=== PATIENT | female | born 1945 | race Caucasian/White ===

== ENCOUNTER 2023-07-16 09:02 | Inpatient (IN) | payer MEDICARE ==
[2023-07-16] MEDS ORDERED: Ondansetron PF 4 MG/2 ML Vial ONE ×2 (10:25→20:00)
[2023-07-16] MEDS ORDERED: Acetaminophen 500 MG TAB ONE (10:25)
[2023-07-16 11:00] LABS: #Basophils 0.1 10x3/uL (0.0-0.2); #Monocytes 1.1 10x3/uL (0.0-1.1); #Neutrophils 7.5 10x3/uL (1.5-8.4); %Basophils 0.6 % (0.0-2.0); %Eosinophils 0.3 % (0.0-6.0); %Lymphocytes 11.1 % (18.0-47.0); %Monocytes 10.9 % (0.0-10.0); %Neutrophils 75.5 % (40.0-75.0); Hematocrit 36.3 % (34.9-44.5); Hemoglobin 12.7 g/dL (12.0-15.5); Mean Corpuscular Hemoglobin 30.5 pg (27.0-33.0); Mean Corpuscular Volume 87.1 fl (81.6-98.3); Mean Platelet Volume 10.3 fl (7.4-10.4); Platelet Count 259 10x3/uL (150-450); RBC Distribution Width 13.2 % (11.5-14.5); Red Blood Cell (RBC) Count 4.17 10x6/uL (3.90-5.03); White Blood Cell (WBC) Count 9.9 10x3/uL (3.5-10.5)
[2023-07-16 11:15] LABS: ALT (SGPT) 22 U/L (8-55); AST (SGOT) 29 U/L (5-34); Albumin 3.4 g/dL (3.4-4.8); Alkaline Phosphatase 64 U/L (40-110); Anion Gap 16 mmol/L (10-20); BUN (Urea Nitrogen) 8 mg/dL (9.8-20.1); Bilirubin, Total 0.5 mg/dL (0.2-1.2); Calc. Creatinine Clearance 0 mL/min (70-130); Calcium 8.5 mg/dL (7.8-10.44); Carbon Dioxide 31 mmol/L (23-31); Chloride 92 mmol/L (98-107); Estimated GFR 76; Globulin 3.3 g/dL (2.4-3.5); Glucose 137 mg/dL (83-110); Magnesium 1.7 mg/dL (1.6-2.6); Protein, Total 6.7 g/dL (5.8-8.1); Sodium 136 mmol/L (136-145)
[2023-07-16 11:18] LABS: Potassium 2.5 mmol/L (3.5-5.1)
[2023-07-16] MEDS ORDERED: Potassium Bicarbonate/Cit Ac 20 MEQ TAB ONE (11:27)
[2023-07-16 11:34] LABS: SARS-CoV-2 NAA Rapid Test Not Detected (NotDetected)
[2023-07-16] MEDS ORDERED: Magnesium 2 GM/50 ML BAG (IN WATER) ONE (12:11)
[2023-07-16] MEDS ORDERED: NS 0.9% w/ 40 MEQ KCL 1,000 ML IV ONE ×2 (12:25→18:51)
[2023-07-16 12:46] LABS: Troponin I 0.017 ng/mL (< 0.028)
[2023-07-16] MEDS ORDERED: guaiFENesin/Codeine Phosphate 100 mg/10 mg 5 ml UD Cup ONE (13:29)
[2023-07-16] MEDS ORDERED: Senokot S 8.6-50 MG TAB PO PRN (14:09)
[2023-07-16] MEDS ORDERED: Ondansetron ODT 4 MG TAB PO PRN (14:09)
[2023-07-16] MEDS ORDERED: Ondansetron PF 4 MG/2 ML Vial IVP PRN (14:09)
[2023-07-16] MEDS ORDERED: Calcium Carbonate 500 MG ChewTAB PO PRN (14:09)
[2023-07-16] MEDS ORDERED: Loperamide HCl 2 MG CAP PO PRN (14:12)
[2023-07-16] MEDS ORDERED: hydrALAZINE 25 MG TAB PO PRN (14:13)
[2023-07-16] MEDS ORDERED: NS 0.9% w/ 40 MEQ KCL 1,000 ML IV SCH ×2 (14:15→20:30)
[2023-07-16] MEDS ORDERED: Insulin Regular 300 UNITS/3 ML VIAL SC PRN ×2 (14:15)
[2023-07-16] MEDS ORDERED: Oseltamivir 75 MG CAP PO SCH (14:15)
[2023-07-16] MEDS ORDERED: Dextrose 50% Abboject 50 ML SYRINGE SLOW IVP PRN (14:15)
[2023-07-16] MEDS ORDERED: Dextrose 5% in Water 1,000 ML IV PRN (14:15)
[2023-07-16] MEDS ORDERED: Glucagon 1 MG/ML KIT IM PRN (14:15)
[2023-07-16] MEDS ORDERED: Ventolin HFA Inhaler 60 PUFF INHALER INH PRN (14:20)
[2023-07-16] MEDS ORDERED: cefTRIAXone (ROCEPHIN) 2 GM VIAL IM SCH (14:30)
[2023-07-16] MEDS ORDERED: cefTRIAXone\\ROCEPHIN 1 GM in Sodium Chloride 0.9% 100 ML IVPB SCH (14:30)
[2023-07-16 14:31] LABS: Bilirubin Neg (Negative); Blood, Urine 10 (Negative); Clarity Clear (Clear); Glucose, Urine (Dipstick) Normal (Negative); Ketone, Urine 50 mg/dL (Negative); Leukocyte 100 (Negative); Nitrite Negative (Negative); Protein, Urine (Dipstick) 30 mg/dl (Neg-Trace); Specific Gravity, Urine 1.015 (1.005-1.030); Urobilinogen Normal mg/dL (Less than 2)
[2023-07-16 14:43] LABS: Bacteria/HPF None Seen HPF (None Seen); CAUTI Indications for Culture Fever or rigors; RBC/HPF 0-3 HPF (0-3); Squamous Epithelial 0-3 HPF (0-3); WBC/HPF 0-3 HPF (0-3)
[2023-07-16 14:44] LABS: Urine Culture Reflex No No
[2023-07-16 15:39] VITALS: BMI 30.7
[2023-07-16] MEDS ORDERED: Ventolin HFA Inhaler 60 PUFF INHALER ONE ×2 (15:41→18:52)
[2023-07-16] MEDS: Ventolin HFA Inhaler 60 PUFF INHALER INH SCH ×3 (15:48→22:35)
[2023-07-16 15:53] LABS: Phosphorus 2.4 mg/dL (2.3-4.7)
[2023-07-16] MEDS ORDERED: cefTRIAXone (ROCEPHIN) 1 GM VIAL ONE (16:54)
[2023-07-16] MEDS ORDERED: Benzonatate 100 MG CAP PO PRN ×2 (19:27→19:59)
[2023-07-16] MEDS ORDERED: Loratadine 10 MG TAB PO PRN (19:27)
[2023-07-16] MEDS ORDERED: Artificial Tear Sol 15 ML BOT EA EYE PRN (19:27)
[2023-07-16] MEDS ORDERED: Sodium Chloride 0.65% Nasal 44 ML BOT EA NARE PRN (19:27)
[2023-07-16] MEDS ORDERED: Moisturizing Cream (Eucerin) 113 GM JAR TOP PRN (19:27)
[2023-07-16 19:28] LABS: Potassium 4.4 mmol/L (3.5-5.1)
[2023-07-16] MEDS ORDERED: Benzonatate 100 MG CAP ONE (20:01)
[2023-07-16] MEDS ORDERED: Famotidine 20 MG TAB ONE (20:04)
[2023-07-16] MEDS ORDERED: Ascorbic Acid 500 mg Chewable Tablet ONE (20:04)
[2023-07-16] MEDS ORDERED: cloNIDine 0.1 MG TAB PO PRN (20:07)
[2023-07-16] MEDS ORDERED: hydrALAZINE 20 MG/ML VIAL SLOW IVP PRN (20:34)
[2023-07-16] MEDS: Heparin 5,000 UNITS/ML VIAL SC SCH (20:44)
[2023-07-16] MEDS: Oseltamivir 75 MG CAP PO SCH (20:44)
[2023-07-16] MEDS: Multivit, Therapeutic 1 TAB PO SCH (20:44)
[2023-07-16] MEDS: Saccharomyces boulardii 250 MG CAP PO SCH (20:44)
[2023-07-16] MEDS: GUAIFENESIN SF SOLN 200 MG/10 ML UDCUP PO PRN (20:44)
[2023-07-16] MEDS: Ascorbic Acid 500 mg Chewable Tablet PO SCH (20:45)
[2023-07-16] MEDS: Doxycycline 100 MG CAP PO SCH (20:45)
[2023-07-16] MEDS: Famotidine 20 MG TAB PO SCH (20:45)
[2023-07-16] MEDS: Fluticasone Propionate Nasal Spray 16 gm Bottle NASAL SCH (20:49)
[2023-07-16] MEDS: dilTIAZem CD 120 MG CAP PO SCH (20:49)
[2023-07-16] MEDS: guaiFENesin/DM ER PO SCH (20:50)
[2023-07-16] MEDS: Benzonatate 100 MG CAP PO SCH (20:51)
[2023-07-16] MEDS ORDERED: NS 0.9% w/ 20 MEQ KCL 1,000 ML/1,000 ML BAG IV SCH (23:55)
[2023-07-17] MEDS: Ventolin HFA Inhaler 60 PUFF INHALER INH SCH ×6 (02:00→22:55)
[2023-07-17] MEDS: GUAIFENESIN SF SOLN 200 MG/10 ML UDCUP PO PRN ×3 (02:04→23:57)
[2023-07-17] MEDS: Acetaminophen 325 MG TAB PO PRN ×3 (02:04→23:52)
[2023-07-17 06:56] LABS: #Monocytes 1.1 10x3/uL (0.0-1.1); #Neutrophils 6.5 10x3/uL (1.5-8.4); %Basophils 0.4 % (0.0-2.0); %Eosinophils 0.1 % (0.0-6.0); %Neutrophils 63.6 % (40.0-75.0); Hematocrit 33.3 % (34.9-44.5); Hemoglobin 11.2 g/dL (12.0-15.5); Mean Corpuscular HGB CONC 33.6 g/dL (32.0-36.0); Mean Corpuscular Hemoglobin 29.6 pg (27.0-33.0); Mean Corpuscular Volume 87.9 fl (81.6-98.3); Mean Platelet Volume 9.7 fl (7.4-10.4); Platelet Count 245 10x3/uL (150-450); RBC Distribution Width 13.7 % (11.5-14.5); Red Blood Cell (RBC) Count 3.79 10x6/uL (3.90-5.03); White Blood Cell (WBC) Count 10.3 10x3/uL (3.5-10.5)
[2023-07-17 07:20] LABS: ALT (SGPT) 21 U/L (8-55); AST (SGOT) 27 U/L (5-34); Albumin 2.9 g/dL (3.4-4.8); Alkaline Phosphatase 55 U/L (40-110); Anion Gap 11 mmol/L (10-20); BUN (Urea Nitrogen) 5 mg/dL (9.8-20.1); Bilirubin, Total 0.3 mg/dL (0.2-1.2); Calc. Creatinine Clearance 90 mL/min (70-130); Calcium 7.8 mg/dL (7.8-10.44); Carbon Dioxide 31 mmol/L (23-31); Chloride 100 mmol/L (98-107); Estimated GFR 89; Globulin 2.8 g/dL (2.4-3.5); Glucose 120 mg/dL (83-110); Magnesium 1.9 mg/dL (1.6-2.6); Phosphorus 1.7 mg/dL (2.3-4.7); Potassium 3.1 mmol/L (3.5-5.1); Protein, Total 5.7 g/dL (5.8-8.1); Sodium 139 mmol/L (136-145)
[2023-07-17] MEDS: dilTIAZem CD 120 MG CAP PO SCH (08:24)
[2023-07-17] MEDS: Benzonatate 100 MG CAP PO SCH ×3 (08:24→20:47)
[2023-07-17] MEDS: Loratadine 10 MG TAB PO SCH (08:25)
[2023-07-17] MEDS: guaiFENesin/DM ER PO SCH ×2 (08:25→20:48)
[2023-07-17] MEDS: Famotidine 20 MG TAB PO SCH ×2 (08:25→20:47)
[2023-07-17] MEDS: Heparin 5,000 UNITS/ML VIAL SC SCH ×2 (08:27→20:49)
[2023-07-17] MEDS: Oseltamivir 75 MG CAP PO SCH ×2 (08:36→20:48)
[2023-07-17] MEDS: Doxycycline 100 MG CAP PO SCH ×2 (08:37→20:47)
[2023-07-17] MEDS ORDERED: FLUoxetine HCl 10 MG CAP PO SCH (09:00)
[2023-07-17] MEDS ORDERED: Raloxifene 60 MG TAB PO SCH (09:00)
[2023-07-17] MEDS ORDERED: Potassium Chloride 20 MEQ TAB PO SCH (12:00)
[2023-07-17] MEDS: Ascorbic Acid 500 mg Chewable Tablet PO SCH (20:47)
[2023-07-17] MEDS: Multivit, Therapeutic 1 TAB PO SCH (20:49)
[2023-07-17] MEDS: Saccharomyces boulardii 250 MG CAP PO SCH (23:00)
[2023-07-17] MEDS: Benzocaine/Menthol 1 LOZ LOZ PO PRN (23:52)
[2023-07-17] MEDS: Fluticasone Propionate Nasal Spray 16 gm Bottle NASAL SCH (23:53)
[2023-07-18] MEDS: Ventolin HFA Inhaler 60 PUFF INHALER INH SCH ×6 (02:15→23:26)
[2023-07-18] MEDS: GUAIFENESIN SF SOLN 200 MG/10 ML UDCUP PO PRN ×2 (06:05→15:29)
[2023-07-18] MEDS: Benzonatate 100 MG CAP PO SCH ×3 (08:22→20:09)
[2023-07-18] MEDS: Raloxifene 60 MG TAB PO SCH (08:22)
[2023-07-18] MEDS: dilTIAZem CD 180 MG CAP PO SCH (08:22)
[2023-07-18] MEDS: Loratadine 10 MG TAB PO SCH (08:23)
[2023-07-18] MEDS: Famotidine 20 MG TAB PO SCH ×2 (08:23→20:08)
[2023-07-18] MEDS: FLUoxetine HCl 20 MG CAP PO SCH (08:23)
[2023-07-18] MEDS: Oseltamivir 75 MG CAP PO SCH ×2 (08:23→20:10)
[2023-07-18] MEDS: Doxycycline 100 MG CAP PO SCH ×2 (08:23→20:09)
[2023-07-18] MEDS: guaiFENesin/DM ER PO SCH ×2 (08:24→20:09)
[2023-07-18] MEDS: Acetaminophen 325 MG TAB PO PRN (08:24)
[2023-07-18] MEDS: Heparin 5,000 UNITS/ML VIAL SC SCH ×2 (08:25→20:25)
[2023-07-18] MEDS ORDERED: Potassium Chloride 20 MEQ TAB PO SCH (09:00)
[2023-07-18] MEDS ORDERED: Magnesium 2 GM/50 ML(in water) 2 GM in Premix 1 BAG IVPB SCH (09:00)
[2023-07-18] MEDS: Benzocaine/Menthol 1 LOZ LOZ PO PRN (15:30)
[2023-07-18] MEDS: Budesonide 0.5 MG/2 ML NEB INH SCH (19:40)
[2023-07-18] MEDS: Multivit, Therapeutic 1 TAB PO SCH (20:08)
[2023-07-18] MEDS: Ascorbic Acid 500 mg Chewable Tablet PO SCH (20:08)
[2023-07-18] MEDS: Saccharomyces boulardii 250 MG CAP PO SCH (20:08)
[2023-07-18] MEDS: Fluticasone Propionate Nasal Spray 16 gm Bottle NASAL SCH (20:10)
[2023-07-19] MEDS: Ventolin HFA Inhaler 60 PUFF INHALER INH SCH ×4 (02:35→14:10)
[2023-07-19 06:24] LABS: #Eosinphils 0.1 10x3/uL (0.0-0.5); #Monocytes 0.7 10x3/uL (0.0-1.1); #Neutrophils 4.1 10x3/uL (1.5-8.4); %Basophils 0.5 % (0.0-2.0); %Eosinophils 1.3 % (0.0-6.0); %Monocytes 8.2 % (0.0-10.0); %Neutrophils 52.4 % (40.0-75.0); Hematocrit 35.1 % (34.9-44.5); Hemoglobin 11.9 g/dL (12.0-15.5); Mean Corpuscular HGB CONC 33.9 g/dL (32.0-36.0); Mean Corpuscular Hemoglobin 30.1 pg (27.0-33.0); Mean Corpuscular Volume 88.6 fl (81.6-98.3); Mean Platelet Volume 9.8 fl (7.4-10.4); Platelet Count 305 10x3/uL (150-450); RBC Distribution Width 13.7 % (11.5-14.5); Red Blood Cell (RBC) Count 3.96 10x6/uL (3.90-5.03); White Blood Cell (WBC) Count 7.9 10x3/uL (3.5-10.5)
[2023-07-19 06:39] LABS: Anion Gap 13 mmol/L (10-20); BUN (Urea Nitrogen) 6 mg/dL (9.8-20.1); Calc. Creatinine Clearance 95 mL/min (70-130); Calcium 8.5 mg/dL (7.8-10.44); Carbon Dioxide 30 mmol/L (23-31); Chloride 99 mmol/L (98-107); Estimated GFR 91; Glucose 111 mg/dL (83-110); Potassium 3.4 mmol/L (3.5-5.1); Sodium 139 mmol/L (136-145)
[2023-07-19 07:12] LABS: Phosphorus 2.7 mg/dL (2.3-4.7)
[2023-07-19] MEDS: Budesonide 0.5 MG/2 ML NEB INH SCH (07:30)
[2023-07-19] MEDS: FLUoxetine HCl 20 MG CAP PO SCH (08:38)
[2023-07-19] MEDS: Famotidine 20 MG TAB PO SCH (08:38)
[2023-07-19] MEDS: guaiFENesin/DM ER PO SCH (08:38)
[2023-07-19] MEDS: Benzonatate 100 MG CAP PO SCH (08:38)
[2023-07-19] MEDS: dilTIAZem CD 180 MG CAP PO SCH (08:38)
[2023-07-19] MEDS: Loratadine 10 MG TAB PO SCH (08:39)
[2023-07-19] MEDS: Doxycycline 100 MG CAP PO SCH (08:39)
[2023-07-19] MEDS: Raloxifene 60 MG TAB PO SCH (08:39)
[2023-07-19] MEDS: Oseltamivir 75 MG CAP PO SCH (08:39)
[2023-07-19] MEDS: Heparin 5,000 UNITS/ML VIAL SC SCH (08:40)
[2023-07-19 13:14] VITALS: BP 144/77; TEMP 97.6
== END 2023-07-19 16:00 | disposition home or self-care (01) | DRG 193 ==
LOC: CSHERS 09:02 → CSHERHOLD 12:30 → CSHTELE 21:37 → OBSVTOIN 07-17 11:04
PROVIDERS: ADMIT Internal Medicine; ATTEND Internal Medicine
DX: J10.1 Influenza due to other identified influenza virus with other respiratory manifestations (principal); J96.01 Acute respiratory failure with hypoxia; J18.9 Pneumonia, unspecified organism; I10 Essential (primary) hypertension; E78.5 Hyperlipidemia, unspecified; E11.9 Type 2 diabetes mellitus without complications; E87.6 Hypokalemia; F41.9 Anxiety disorder, unspecified; E83.42 Hypomagnesemia; E83.39 Other disorders of phosphorus metabolism; G47.33 Obstructive sleep apnea (adult) (pediatric); Z11.52 Encounter for screening for COVID-19; Z88.2 Allergy status to sulfonamides; Z91.013 Allergy to seafood; Z98.890 Other specified postprocedural states; Z79.899 Other long term (current) drug therapy; Z90.710 Acquired absence of both cervix and uterus; Z82.49 Family history of ischemic heart disease and other diseases of the circulatory system
CPT/HCPCS: 36415; 36416; 71045; 80048; 80053; 81001; 83605; 83735; 84100; 84145; 84484; 85025; 86140; 93005; 94640; 94664; 94760; 94762; 96372; 96374; 96375; G0378; J0696; J1644; J2405; J3475; J3480; J3490; J7626